=== PATIENT | female | born 1985 | race Hispanic/Latino ===

== ENCOUNTER 2018-02-01 10:46 | Emergency (ER) | payer MEDICAID ==
[2018-02-01 10:56] VITALS: BP 108/64; PULSE 71; RESP 16; TEMP 98.2; O2SAT 99
[2018-02-01 10:57] VITALS: BMI 17.0
--- NOTE | 2018-02-01 11:13 | ED PDOC ---
HPI: Eye Injury/Pain Time Seen by Provider: 02/01/18 11:06 Chief Complaint (Nursing): Eye Problem History Per: Patient Onset/Duration Of Symptoms: Days (2) Current Symptoms Are (Timing): Still Present Severity: Moderate Pain Scale Rating Of: 3 Quality: Sharp Wears Contact Lens?: No Associated Symptoms: Pain, Swelling, FB Sensation. denies: Decreased Vision, Discharge From Eye Additional Complaint(s): Swelling and pain left inner lower lid since yesterday. No discharge or change in vision. Started as single vesicle lower inner lid. Has increased in size. Past Medical History Vital Signs: Last Vital Signs Temp 98.2 F 02/01/18 10:56 Pulse 71 02/01/18 10:56 Resp 16 02/01/18 10:56 BP 108/64 02/01/18 10:56 Pulse Ox 99 02/01/18 10:56 - Medical History PMH: Anxiety, Depression Denies: Diabetes, Hepatitis, HIV, HTN, Chronic Kidney Disease, Seizures, Sexually Transmitted Disease - Family History Family History: States: Unknown Family Hx - Immunization History Hx Tetanus Toxoid Vaccination: No Hx Influenza Vaccination: No Hx Pneumococcal Vaccination: No - Home Medications Home Medications: Ambulatory Orders Medication Instructions Recorded Gabapentin [Neurontin] 100 mg PO BID #60 cap 11/01/17 traZODone [Desyrel] 100 mg PO HS PRN #60 tab 11/01/17 Tobramycin [Tobrex] 1 drop OS TID #5 ml 02/01/18 Trifluridine Opht 1% [Viroptic 1% 1 drop OS Q2 #1 bottle 02/01/18 Opht Soln] - Allergies Allergies/Adverse Reactions: Allergies Allergy/AdvReac Type Severity Reaction Status Date / Time codeine Allergy ITCHING Verified 10/29/17 00:05 Review of Systems Constitutional: Negative for: Fever Eyes: Positive for: Pain, Conjunctivae Inflammation. Negative for: Vision Change Physical Exam - Physical Exam Appears: Positive for: Non-toxic, No Acute Distress Skin: Positive for: Normal Color, Warm, DRY Eye Exam: Positive for: EOMI, PERRL, Conjunctival injection (Swelling/vesicle lower inner lid left eye. No dendtirtes or increased flourescein uptake.) - ECG O2 Sat by Pulse Oximetry: 99 Medical Decision Making Medical Decision Making: Discussed with Dr. Sen, will see pt in office now. Disposition - Clinical Impression Clinical Impression: Conjunctivitis - Patient ED Disposition Is Patient to be Admitted: No Counseled Patient/Family Regarding: Diagnosis, Need For Followup, Rx Given - Disposition Referrals: Fabian Sen MD [Staff Provider] - Disposition: Routine/Home Disposition Time: 11:15 Condition: FAIR Prescriptions: Tobramycin [Tobrex] 1 drop OS TID #5 ml Trifluridine Opht 1% [Viroptic 1% Opht Soln] 1 drop OS Q2 #1 bottle Instructions: Conjunctivitis (Pinkeye) Forms: [employer] (Maltese)
== END 2018-02-01 11:43 | disposition home or self-care (01) ==
LOC: H.ER 10:46
DX: H10.9 Unspecified conjunctivitis (principal); F32.9 Major depressive disorder, single episode, unspecified; F41.9 Anxiety disorder, unspecified

== ENCOUNTER 2018-04-30 14:39 | Emergency (ER) | payer MEDICAID ==
[2018-04-30 14:39] VITALS: BMI 17.0
[2018-04-30 14:46] VITALS: BP 122/67; PULSE 72; RESP 18; TEMP 98.8; O2SAT 97
[2018-04-30] MEDS ORDERED: Amoxicillin-Clav 500-125 mg Tab PO STA (14:50)
--- NOTE | 2018-04-30 16:33 | ED PDOC ---
HPI: Dental Pain/Injury Time Seen by Provider: 04/30/18 14:46 Chief Complaint (Nursing): Dental Pain Chief Complaint (Provider): Dental Pain History Per: Patient History/Exam Limitations: no limitations Onset/Duration Of Symptoms: Days (2x) Current Symptoms Are (Timing): Still Present Quality: "Pain" Additional Complaint(s): 32 year old female presents to ED for an evaluation of mouth pain. Patient reports of painful mass on right upper tooth for the past 2 days. Patient took Motrin without any relief. Denies fever. PMD: No Family Provider Past Medical History Reviewed: Historical Data, Nursing Documentation, Vital Signs Vital Signs: Last Vital Signs Temp 98.8 F 04/30/18 14:44 Pulse 72 04/30/18 14:44 Resp 18 04/30/18 14:44 BP 122/67 04/30/18 14:44 Pulse Ox 97 04/30/18 14:44 - Medical History PMH: Anxiety, Depression Denies: Diabetes, Hepatitis, HIV, HTN, Chronic Kidney Disease, Seizures, Sexually Transmitted Disease - Family History Family History: States: Unknown Family Hx - Immunization History Hx Tetanus Toxoid Vaccination: No Hx Influenza Vaccination: No Hx Pneumococcal Vaccination: No - Home Medications Home Medications: Ambulatory Orders Medication Instructions Recorded Gabapentin [Neurontin] 100 mg PO BID #60 cap 11/01/17 traZODone [Desyrel] 100 mg PO HS PRN #60 tab 11/01/17 Tobramycin [Tobrex] 1 drop OS TID #5 ml 02/01/18 Trifluridine Opht 1% [Viroptic 1% 1 drop OS Q2 #1 bottle 02/01/18 Opht Soln] Amoxicillin/Clavulanate [Augmentin 1 tab PO BID #20 tab 04/30/18 500 MG-125 MG] Naproxen [Naprosyn] 500 mg PO BID PRN #10 tab 04/30/18 - Allergies Allergies/Adverse Reactions: Allergies Allergy/AdvReac Type Severity Reaction Status Date / Time codeine Allergy ITCHING Verified 04/30/18 14:44 Review of Systems ROS Statement: Except As Marked, All Systems Reviewed And Found Negative Constitutional: Negative for: Fever ENT: Positive for: Mouth Pain (mass on right upper tooth ) Psych: Negative for: Suicidal ideation (homicidal ideation) Physical Exam - Reviewed Nursing Documentation Reviewed: Yes Vital Signs Reviewed: Yes - Physical Exam Appears: Positive for: Non-toxic, No Acute Distress Head Exam: Positive for: ATRAUMATIC, NORMAL INSPECTION, NORMOCEPHALIC Skin: Positive for: Normal Color, Dry Eye Exam: Positive for: Normal appearance ENT: Positive for: Other (no lesion, airways patent, no trismus or drooling). Negative for: Normal ENT Inspection (right maxillary apical area erythematous nodules, poor dentition), Pharyngeal Erythema, Tonsillar Exudate, Tonsillar Swelling Neurologic/Psych: Positive for: Alert, Oriented (x3) - ECG O2 Sat by Pulse Oximetry: 97 (RA) Pulse Ox Interpretation: Normal - Progress ED Course And Treament: On re-evaluation, pt. reports good pain relief. Medical Decision Making Medical Decision Making: Time: 1450 Initial Impression: abscess Initial Plan: --Augmentin 500mg -125mg tab --Toradol 30mg IM Clinical Impression: dental abscess Upon provider evaluation patient is medically stable, and requires no further treatment in the ED at this time. Patient will be discharged with Augmentin and Naprosyn 500mg for pain. Counseling was provided and all questions were answered regarding diagnosis and need for follow up with dentist. There is agreement to discharge plan. Return if symptoms persist or worsen. Scribe Attestation: Documented by Iza Hargrove, acting as a scribe for Pardeep Crabtree PA-C. Provider Scribe Attestation: All medical record entries made by the Scribe were at my direction and personally dictated by me. I have reviewed the chart and agree that the record accurately reflects my personal performance of the history, physical exam, medical decision making, and the department course for this patient. I have also personally directed, reviewed, and agree with the discharge instructions and disposition. Disposition - Clinical Impression Clinical Impression: Dental abscess - Patient ED Disposition Is Patient to be Admitted: No - Disposition Referrals: [facility] [Outside] [facility] [Outside] Disposition: Routine/Home Disposition Time: 15:25 Condition: STABLE Additional Instructions: DELONTE VAZQUEZ, thank you for letting us take care of you today. Your provider was Luis Eduardo Martínez MD and you were treated for THROAT PAIN. The emergency medical care you received today was directed at your acute symptoms. If you were prescribed any medication, please fill it and take as directed. It may take several days for your symptoms to resolve. Return to the Emergency Department if your symptoms worsen, do not improve, or if you have any other problems. Please contact your doctor or call one of the physicians/clinics you have been referred to that are listed on the Patient Visit Information form that is included in your discharge packet. Bring any paperwork you were given at discharge with you along with any medications you are taking to your follow up visit. Our treatment cannot replace ongoing medical care by a primary care provider outside of the emergency department. Thank you for allowing the [facility] team to be part of your care today. If you had an X-Ray or CT scan: A Radiologist will review the ED reading if any change in treatment is needed we will contact you. If you had a blood, urine, or wound culture: It will take several days for the results, if any change in treatment is needed we will contact you. If you had an STI test: It will take 48 hours for the results. Please call after 1 week if you have not heard back. Prescriptions: Amoxicillin/Clavulanate [Augmentin 500 MG-125 MG] 1 tab PO BID #20 tab Naproxen [Naprosyn] 500 mg PO BID PRN #10 tab PRN Reason: Pain Instructions: Tooth Abscess (DC) Forms: [employer] (Niuean) Print Language: PORTUGUESE
== END 2018-04-30 15:35 | disposition home or self-care (01) ==
LOC: H.ER 14:39
DX: K04.7 Periapical abscess without sinus (principal); Z86.59 Personal history of other mental and behavioral disorders
CPT/HCPCS: 81025; 96372; 99281; J1885